=== PATIENT | female | born 1965 ===

== ENCOUNTER 2019-07-25 01:51 | Emergency (ER) | payer OTHER ==
[~2019-07-25] VITALS: Ht 157.5 cm; Wt 88.0 kg
[~2019-07-25 01:51] MED LIST: CLONAZEPAM2 MG/TAB PO; PRILOSEC20 MG PO; RESTORIL30 M1 PO; SEROQUEL50 MG; SYNTHROID100 MCG PO; ZANTAC300 MG PO
== END 2019-07-25 11:00 | disposition home or self-care (01) ==
LOC: ER 01:51
DX: K57.30 Diverticulosis of large intestine without perforation or abscess without bleeding (principal)